=== PATIENT | female | born 1945 | race Caucasian/White ===

== ENCOUNTER 2020-08-30 10:09 | Emergency (ER) | payer OTHER | END 2020-08-30 10:26 | disposition home or self-care (01) | LOC: JVIRT 10:09 | DX: Z20.822 Contact with and (suspected) exposure to COVID-19 (principal) | CPT/HCPCS: C9803; G2012-GT; U0003 ==

== ENCOUNTER 2021-12-23 15:51 | Emergency (ER) | payer OTHER ==
[2021-12-23 16:10] VITALS: BMI 35.6
[2021-12-23] MEDS ORDERED: BEBTELOVIMAB (EUA) 175 MG/2 ML VIAL IVPUSH ONE (16:23)
[2021-12-23 17:56] VITALS: BP 128/79; PULSE 71; TEMP 98.3
== END 2021-12-23 17:40 | disposition home or self-care (01) ==
LOC: JCOVINFU 15:51 → JER 15:51 → JCOVINFU 17:40
PROC: 3E033GC Introduction of Other Therapeutic Substance into Peripheral Vein, Percutaneous Approach (ICD-10-PCS; principal; 2021-12-23)
DX: U07.1 COVID-19 (principal)
CPT/HCPCS: 99285-25; M0222; Q0222